=== PATIENT | female | born 2000 | race Caucasian/White ===

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

== ENCOUNTER 2020-05-28 22:46 | Emergency (ER) | payer SELFPAY ==
[2020-05-28 23:18] LABS: Bilirubin Negative (Negative); Blood, Urine Trace (Negative); Clarity Cloudy (Clear); Glucose, Urine (Dipstick) Negative (Negative); Ketone, Urine Negative (Negative); Leukocyte Moderate (Negative); Nitrite Negative (Negative); Protein, Urine (Dipstick) Negative (Neg-Trace); Urobilinogen 0.2 mg/dL (Less than 2)
[2020-05-28 23:23] LABS: Bacteria/HPF 3+ HPF (None Seen); Pregnancy Test - Urine (BHCG) Negative (Negative); Pregu Control Background? CLEAR/WHITE (CLR/WHITE); Pregu Control Bar Appear? YES (CONTROL BAR); WBC/HPF 21-50 HPF (0-3)
[2020-05-28] MEDS ORDERED: Ondansetron ODT 4 MG TAB ONE (23:33)
[2020-05-28] MEDS ORDERED: Sulfameth/Trimethoprim DS 800-160mg TAB ONE (23:33)
== END 2020-05-28 23:43 | disposition home or self-care (01) ==
LOC: NAV ERS 22:46
DX: N39.0 Urinary tract infection, site not specified (principal)
CPT/HCPCS: 81003; 81015; 81025; 87077; 87086; 87186; 99284; Q0162